=== PATIENT | female | born 1955 | race Caucasian/White ===

== ENCOUNTER 2020-07-07 08:39 | Outpatient (CLI) | payer MEDICARE, SELFPAY ==
[2020-07-07 09:21] LABS: Alanine Aminotransferase 13 U/L (4-35); Albumin Level 4.4 g/dL (3.5-5.1); Alkaline Phosphatase 60 U/L (38-126); Anion Gap 6 mmol/L (8-16); Aspartate Amino Transferase 24 U/L (14-36); Bilirubin,Total 0.7 mg/dL (0.2-1.3); Blood Urea Nitrogen 15 mg/dL (7-17); Calcium 9.6 mg/dL (8.4-10.2); Carbon Dioxide 30 mmol/L (22-30); Chloride 105 mmol/L (98-107); Estimated Glomerular Filt Rate 45; Glucose 104 mg/dL (65-105); HDL Direct 50 mg/dL; Potassium 3.8 mmol/L (3.4-5.0); Sodium 141 mmol/L (137-145); Triglycerides 200 mg/dL (<150)
[2020-07-07 09:28] LABS: LDL Cholesterol Direct 243 mg/dL
[2020-07-07 11:12] LABS: Cholesterol 355 mg/dL (0-200)
== END 2020-07-07 08:40 | disposition home or self-care (01) ==
PROVIDERS: PCP Internal Medicine; Visit Provider Internal Medicine
DX: E78.5 Hyperlipidemia, unspecified (principal); E03.9 Hypothyroidism, unspecified
CPT/HCPCS: 36415; 80053; 80061; 84439; 84443

== ENCOUNTER 2020-09-10 16:11 | Outpatient (CLI) | payer MEDICARE, SELFPAY ==
--- NOTE | ~2020-09-10 | CT_ITS ---
EXAMINATION: CT abdomen pelvis wo con EXAM DATE: 09/10/2020 16:36 INDICATION: R10.9 - Unspecified abdominal pain . TECHNIQUE: Spiral CT of the abdomen and pelvis was performed without contrast. Axial, coronal and s agittal images were reviewed. The dose-length product (DLP) for this examination was 309.55 mGy-cm. The exposure was tailored according to patient size (auto mA exposure control), and iterative recons truction (ASIR) was used as additional dose reduction technique. Comparison is made to prior examinat ion from 09/29/2006. FINDINGS: The liver, spleen, adrenal glands and pancreas are unremarkable. There are cholecystectomy clips. There is no nephrolithiasis or hydronephrosis. The uterus is not identified and has likely been surgically resected. The bladder is unremarkable. There is no retroperitoneal or pelvic lymph adenopathy. There is mild to moderate scattered arteriosclerotic disease. The appendix is normal. The stomach and small bowel are unremarkable. There is expected amount of c olonic stool. No free intraperitoneal gas. The heart is normal in size. There are no pericardial or pleural effusions. There is right basilar subsegmental atelectasis. Evidence of hyperinflation a nd mild emphysema. Mild basilar bronchiectasis. There are no osteoblastic or osteolytic lesions iden tified. Mild lumbar levoscoliosis. IMPRESSION: 1. No acute intra-abdominal findings. 2. Emphysema, hyperinflation, bronchiectasis. Reviewed, dictated and finalized at location A.
== END 2020-09-10 16:12 | disposition home or self-care (01) ==
LOC: ANHIMG 16:17
PROVIDERS: PCP Internal Medicine; Visit Provider Physician Assistant
DX: R10.9 Unspecified abdominal pain (principal); J43.9 Emphysema, unspecified; J47.9 Bronchiectasis, uncomplicated
CPT/HCPCS: 74176

== ENCOUNTER 2020-10-29 08:27 | Outpatient (CLI) | payer MEDICARE, SELFPAY ==
--- NOTE | 2020-10-29 08:54 | ECHO_ITS ---
Patient Info Name: Stephanie Guzman Age: 65 years : 1955 Gender: Female Ht: 68 in Wt: 138 lbs BSA: 1.73 m2 HR: 93 bpm BP: 142 / 91 mmHg Heart Rhythm: Sinus Rhythm Exam Date: 10/29/2020 9:08 AM Exam Location: [facility] Pulmonary Patient Status: Outpatient Admit Date: 10/29/2020 Staff Ordering Physician: Jamin Butler DO Cement Mixer Driver: MARCO Attending Provider: Jamin Butler DO Exam Type: CA echo doppler color flow Study Info Indications R55 - Syncope and collapse Complete two-dimensional, color flow and Doppler transthoracic echocardiogram is performed. Summary 1. Complete two-dimensional, color flow and Doppler transthoracic echocardiogram is performed. 2. Left ventricular chamber dimension is normal. 3. Left ventricular systolic function is normal, estimated at 55-60%. 4. The left ventricular diastolic function is grade I diastolic dysfunction. 5. The mitral valve has moderately calcified annulus. 6. There is trace mitral valve regurgitation. 7. There is trace tricuspid valve regurgitation. 8. No pulmonary hypertension, estimated pulmonary arterial systolic pressure is 14 mmHg. Left Ventricle Tissue doppler E/e' is not calculated. Left ventricular chamber dimension is normal. Left ventricular systolic function is normal, estimated at 55-60%. The left ventricular diastolic function is grade I diastolic dysfunction. Right Ventricle Right ventricular chamber dimension is normal. Right ventricular systolic function is normal. Left Atria Left atrial chamber dimension is normal. Right Atria Right atrial chamber dimension is normal. Aortic Valve The aortic valve is trileaflet. There is no aortic valve stenosis. There is no aortic valve regurgitation. Pulmonic Valve There is no pulmonic regurgitation. Mitral Valve The mitral valve has moderately calcified annulus. There is no mitral valve stenosis. There is trace mitral valve regurgitation. Tricuspid Valve There is trace tricuspid valve regurgitation. No pulmonary hypertension, estimated pulmonary arterial systolic pressure is 14 mmHg. Pericardium/Pleural There is no pericardial effusion. Inferior Vena Cava Normal inferior vena cava with >50% collapse upon inspiration consistent with normal right atrial pressure, 5 mmHg. Aorta The aortic root size at the sinus of Valsalva is normal. Left Ventricular Outflow Tract Name Value Normal LVOT 2D LVOT Diameter 2.0 cm LVOT Doppler LVOT Peak Gradient 3 mmHg LVOT Mean Gradient 1 mmHg LVOT VTI 18 cm LVOT VTI/AV VTI Ratio 0.8 LVOT Stroke Volume 53 ml LVOT CO 416.1 l/min LVOT CI 240.5 l/min/m2 Pulmonic Valve Name Value Normal PV Doppler
== END 2020-10-29 08:28 | disposition home or self-care (01) ==
LOC: ANHCARD 08:29
PROVIDERS: PCP Internal Medicine; Visit Provider Internal Medicine Cardiovascular Disease
DX: R55 Syncope and collapse (principal)
CPT/HCPCS: 93306

== ENCOUNTER 2020-12-23 11:03 | Outpatient (CLI) | payer MEDICARE, SELFPAY ==
[2020-12-23 11:34] LABS: Basophils Percent Auto 0.4 % (0.2-1.2); Eosinophils Absolute Auto 0.1 K/mm3 (0-0.3); Eosinophils Percent Auto 1.6 % (0-4.4); Hematocrit 41.6 % (37.0-47.0); Hemoglobin 13.6 g/dL (12.0-15.0); Immature Granulocyte Absolute 0.01 K/mm3 (0.00-0.031); Immature Granulocyte Percent A 0.2 % (0-0.5); Lymphocytes Absolute Auto 2.29 K/mm3 (0.9-3.2); Lymphocytes Percent Auto 45.2 % (18.3-44.2); Mean Corpuscular HGB Conc 32.7 g/dl (32-36); Mean Corpuscular Hemoglobin 28.9 pg (26-34); Mean Corpuscular Volume 88.5 fl (80-100); Monocytes Absolute Auto 0.5 K/mm3 (0.1-0.6); Monocytes Percent Auto 10.3 % (2.6-8.5); Neutrophils Absolute Auto 2.2 K/mm3 (1.3-6.7); Neutrophils Percent Auto 42.3 % (45.5-73.1); Platelet Count Result 219 k/mm3 (150-375); Red Cell Distribution Width 12.5 % (11.5-14.5); White Blood Count 5.1 K/mm3 (4.5-10.0)
[2020-12-23 11:39] LABS: Add Urine Microscopic? YES; Appearance Urine Clear (Clear); Bacteria Urine Trace /hpf; Bilirubin Urine Negative (Negative); Blood Urine Negative (Negative); Color Urine Yellow (Yellow); Glucose Urine UA Negative (Negative); Ketones Urine Negative (Negative); Leukocyte Esterase Ur 2+ LEU/UL (NEGATIVE); Mucus Urine Rare /lpf; Nitrate Urine Negative (Negative); Protein Urine Negative (Negative); Specific Grav Ur 1.015 (1.001-1.035); Squamous Epithelial Cell Urine Rare /hpf (Few); Urobilinogen Urine Negative mg/dL (<2.0); WBC Urine 21-30 /hpf (0-3)
[2020-12-23 11:43] LABS: Alanine Aminotransferase 21 U/L (4-35); Albumin Level 4.4 g/dL (3.5-5.1); Alkaline Phosphatase 61 U/L (38-126); Anion Gap 7 mmol/L (8-16); Aspartate Amino Transferase 37 U/L (14-36); Bilirubin,Total 0.4 mg/dL (0.2-1.3); Blood Urea Nitrogen 16 mg/dL (7-17); Calcium 9.5 mg/dL (8.4-10.2); Carbon Dioxide 31 mmol/L (22-30); Chloride 99 mmol/L (98-107); Cholesterol 185 mg/dL (0-200); Estimated Glomerular Filt Rate 50; Glucose 91 mg/dL (65-105); HDL Direct 56 mg/dL; Potassium 4.1 mmol/L (3.4-5.0); Sodium 137 mmol/L (137-145); Triglycerides 163 mg/dL (<150)
[2020-12-23 11:54] LABS: LDL Cholesterol Direct 78 mg/dL
[2020-12-23 12:24] LABS: Free T4 Free Thyroxine 1.23 ng/mL (0.78-2.19)
[2020-12-23 12:51] LABS: Folic Acid > 20.0 ng/mL (2.76->20)
== END 2020-12-23 11:04 | disposition home or self-care (01) ==
LOC: ANHLAB 11:07
PROVIDERS: Physician Assistant; PCP Internal Medicine; Visit Provider Internal Medicine
DX: R30.0 Dysuria (principal); E55.9 Vitamin D deficiency, unspecified; R53.83 Other fatigue; E03.9 Hypothyroidism, unspecified; I10 Essential (primary) hypertension; E78.5 Hyperlipidemia, unspecified
CPT/HCPCS: 36415; 80053; 80061; 81001; 82306; 82607; 82746; 83735; 84439; 84443; 85025; 87077; 87086; 87088; 87186

== ENCOUNTER → 2021-04-03 10:18 | Outpatient (CLI) | payer MEDICARE, SELFPAY ==
--- NOTE | ~2021-04-03 | DEXA_ITS ---
Bone Density Report Name: Stephanie Guzman Age: 65 Sex: Female Ethnicity: White Date of : 1955 Indication: postmenopausal; screening for osteoporosis; height loss; history of glucocorticoids; prior fracture; hysterectomy; rheumatoid arthritis; Referring Provider: Alessandro, Aleksandar Villalobos Study: Bone densitometry was performed. Exam Date: April 03, 2021 Accession number: [id number] Bone Density: Region BMD T-score Z-score Classification AP Spine (L1-L4) 0.964 -0.8 1.0 Normal Femoral Neck (Left) 0.535 -2.8 -1.4 Osteoporosis Total Hip (Left) 0.702 -2.0 -0.8 Osteopenia Femoral Neck (Right) 0.548 -2.7 -1.2 Osteoporosis Total Hip (Right) 0.745 -1.6 -0.4 Osteopenia Total Hip Mean 0.724 -1.8 -0.6 Osteopenia World Health Organization criteria for BMD impression classify patients as: Normal (T-score at or above -1.0), Osteopenia (T-score between -1.0 and -2.5), or Osteoporosis (T-score at or below -2.5). 10-year Fracture Risk: FRAX not reported because: Some T-score for Spine Total or Hip Total or Femoral Neck at or below -2.5 Prior hip or vertebral fracture Previous Exams: Region Exam Age BMD T-score BMD Change BMD Change Date g/cm2 vs Baseline vs Previous AP Spine(L1-L4) 04/03/2021 65 0.964 -0.8 -0.039* -0.039* 08/15/2007 51 1.003 -0.4 Total Hip(Left) 04/03/2021 65 0.702 -2.0 -0.174* -0.174* 08/15/2007 51 0.876 -0.5 Total Hip(Right) 04/03/2021 65 0.745 -1.6 -0.162* -0.162* 08/15/2007 51 0.907 -0.3 *Denotes significance at 95% confidence level, LSC for AP Spine = 0.022 g/cm2, LSC for Total Hip = 0.027 g/cm2 Clinical Information Provided by Patient: Have had a previous hip or vertebral fracture Has had a low trauma fracture Has taken Glucocorticoids Has rheumatoid arthritis Has used the following medications: Vitamin D, 5 mg prednisone daily recently for 6 weeks Has the following medical conditions: Hysterectomy, beginning stages emphysema-no treatment yet, stage 1 kidney disease Patient maximum height was 67 Menopause Age: 35 No regular weight bearing exercise Does not regularly consume dairy products Onset of menses at age 13 Number of children 2 Impression: The patient has established osteoporosis, based on the Left Femoral Neck T-score and the existence of a prior fracture. The patient has risk factors, including: previous fracture, history of glucocorticoid therapy. The BMD for the AP
== END ==
PROVIDERS: PCP Internal Medicine; Visit Provider Internal Medicine
DX: M43.9 Deforming dorsopathy, unspecified (principal); M81.0 Age-related osteoporosis without current pathological fracture; Z78.0 Asymptomatic menopausal state; M85.852 Other specified disorders of bone density and structure, left thigh; M85.851 Other specified disorders of bone density and structure, right thigh
CPT/HCPCS: 77080

== ENCOUNTER → 2021-04-03 10:22 | Outpatient (CLI) | payer MEDICARE, SELFPAY ==
--- NOTE | ~2021-04-03 | MM_ITS ---
EXAMINATION: MM screening constance BI w paul HISTORY: Screening mammogram TECHNIQUE: Craniocaudal and mediolateral oblique 3-D tomosynthesis images were obtained and synthetic 2-D images were generated. Bilateral rotated lateral cc views. CAD analysis was submitted and interp reted. COMPARISON: 11/06/2013 diagnostic right mammogram and right breast ultrasound 11/04/2013 bilateral digital screening mammogram 10/19/2012 diagnostic left digital mammogram and limited left breast ultrasound 10/08/2012 bilateral digital screening mammogram 09/24/2010 bilateral digital screening mammogram BREAST PARENCHYMAL COMPOSITION: The breasts are heterogeneously dense, which may obscure small masses . FINDINGS: Occasional benign calcifications. There is no evidence of suspicious mass, calcification, o r architectural distortion to suggest malignancy in either breast. There has been no suspicious inter micha change. IMPRESSION: 1. No mammographic evidence of malignancy. 2. Recommend routine screening mammography in one year. BI-RADS Category 2: Benign finding(s). Reviewed, dictated and finalized at location A.
== END ==
PROVIDERS: PCP Internal Medicine; Visit Provider Internal Medicine
DX: Z12.31 Encounter for screening mammogram for malignant neoplasm of breast (principal)
CPT/HCPCS: 77063; 77067

== ENCOUNTER → 2021-04-21 08:58 | Outpatient (CLI) | payer MEDICARE, SELFPAY ==
[2021-04-21 17:30] LABS: SARS-CoV-2 RNA PCR Negative
== END ==
PROVIDERS: PCP Internal Medicine; Visit Provider Internal Medicine
DX: B34.9 Viral infection, unspecified (principal); Z20.822 Contact with and (suspected) exposure to COVID-19
CPT/HCPCS: C9803; U0003; U0005

== ENCOUNTER → 2021-07-14 01:56 | Outpatient (CLI) | payer MEDICARE, SELFPAY ==
[2021-07-14 12:49] LABS: Influenza A QL RT-PCR Negative (Negative); Influenza B QL RT-PCR Negative (Negative); SARS-CoV-2 RNA PCR Positive
== END ==
PROVIDERS: PCP Internal Medicine; Visit Provider Internal Medicine
DX: U07.1 COVID-19 (principal)
CPT/HCPCS: 87502; C9803; U0003; U0005

== ENCOUNTER 2021-11-17 07:04 | Outpatient (CLI) | payer MEDICARE, SELFPAY ==
[2021-11-17 07:38] LABS: Basophils Percent Auto 0.4 % (0.2-1.2); Eosinophils Absolute Auto 0.1 K/mm3 (0-0.3); Eosinophils Percent Auto 1.1 % (0-4.4); Hematocrit 41.8 % (37.0-47.0); Hemoglobin 13.9 g/dL (12.0-15.0); Lymphocytes Absolute Auto 2.62 K/mm3 (0.9-3.2); Lymphocytes Percent Auto 49.4 % (18.3-44.2); Mean Corpuscular HGB Conc 33.3 g/dl (32-36); Mean Corpuscular Hemoglobin 29.9 pg (26-34); Mean Corpuscular Volume 89.9 fl (80-100); Mean Platelet Volume 9.2 fl (7.4-10.4); Monocytes Absolute Auto 0.6 K/mm3 (0.1-0.6); Monocytes Percent Auto 12.1 % (2.6-8.5); Platelet Count Result 186 k/mm3 (150-375); Red Blood Count 4.65 M/mm3 (4.2-5.4); Red Cell Distribution Width 11.9 % (11.5-14.5); White Blood Count 5.3 K/mm3 (4.5-10.0)
[2021-11-17 08:56] LABS: Alanine Aminotransferase 18 U/L (6-35); Albumin Level 4.7 g/dL (3.5-5.1); Alkaline Phosphatase 51 U/L (38-126); Anion Gap 4 mmol/L (8-16); Aspartate Amino Transferase 31 U/L (14-36); Bilirubin,Total 0.4 mg/dL (0.2-1.3); Blood Urea Nitrogen 13 mg/dL (7-17); Calcium 9.3 mg/dL (8.4-10.2); Carbon Dioxide 28 mmol/L (22-30); Chloride 108 mmol/L (98-107); Cholesterol 177 mg/dL (0-200); Estimated Glomerular Filt Rate 50; Glucose 89 mg/dL (65-110); HDL Direct 59 mg/dL; Potassium 3.8 mmol/L (3.4-5.0); Sodium 140 mmol/L (137-145); Triglycerides 119 mg/dL (<150)
[2021-11-17 09:05] LABS: Free T4 Free Thyroxine 1.57 ng/mL (0.78-2.19); Vitamin D 25 Hydroxy 68.1 ng/mL
[2021-11-17 09:06] LABS: LDL Cholesterol Direct 75 mg/dL
[2021-11-17 11:18] LABS: Folic Acid > 20.0 ng/mL (2.76->20)
== END 2021-11-17 07:05 | disposition home or self-care (01) ==
PROVIDERS: PCP Internal Medicine; Visit Provider Internal Medicine
DX: E55.9 Vitamin D deficiency, unspecified (principal); E03.9 Hypothyroidism, unspecified; E78.5 Hyperlipidemia, unspecified; R53.83 Other fatigue
CPT/HCPCS: 36415; 80053; 80061; 82306; 82607; 82746; 84439; 84443; 85025

== ENCOUNTER 2022-04-29 00:26 | Day surgery (SDC) | payer MEDICARE, SELFPAY ==
[2022-04-20 14:27] VITALS: BMI 24.2
--- NOTE | 2022-04-27 15:11 | PM.HPGS ---
History of Present Illness History of Present Illness Consent: Risks, benefits, and alternatives have been discussed and questions answered. Patient agrees to proceed with procedure. Chief complaint: constipation, hx colon polyps Narrative: Stephanie Guzman is a 66 year old female referred for colon cancer screening. She had 3 adenomatous polyps removed about 8 years ago. [facility] Past Medical History Medical History Anxiety Arthritis Asthma COPD (chronic obstructive pulmonary disease) HTN (hypertension) Surgical History Surgical History History of back surgery History of cholecystectomy History of hysterectomy Family History Family History Mother Family history of pancreatic cancer Father Patient's father is in good health Social History Social History Smoking status: Former smoker Second hand tobacco smoke exposure: No Alcohol intake: never Substance use: never Substance use type: does not use Living arrangements: with family Spiritual care concerns: No Meds Home Medications and Allergies Home Medications Medication Instructions Recorded Confirmed Type multivitamin (Multiple Vitamins 1 tablet PO DAILY 10/28/19 04/20/22 History tablet) omega-3 fatty acids 1,000 mg 1,000 mg PO DAILY 04/08/20 04/20/22 History capsule hydroxychloroquine 200 mg tablet 200 mg PO BID 12/23/20 04/20/22 History tramadol 50 mg tablet 100 mg PO TID PRN pain #30 tabs 01/11/21 04/20/22 Rx bupropion HCl 75 mg tablet 150 mg PO DAILY 06/02/21 04/20/22 History cholecalciferol (vitamin D3) 125 10,000 unit PO DAILY 06/02/21 04/20/22 History mcg (5,000 unit) capsule ondansetron HCl 4 mg tablet 4 mg PO Q8H 06/02/21 04/20/22 History (Zofran) tizanidine 4 mg capsule 4 mg PO QHS PRN Muscle Spasm 06/02/21 04/20/22 History losartan 50 mg tablet 50 mg PO DAILY #90 tabs 11/21/21 04/20/22 Rx rosuvastatin 10 mg tablet (Crestor) 10 mg PO DAILY #90 tabs 12/13/21 04/20/22 Rx levothyroxine 25 mcg tablet 25 mcg PO DAILY #90 tabs 01/24/22 04/20/22 Rx comp.stocking,knee,long,medium #12 ea 04/01/22 04/01/22 Rx secukinumab 150 mg/mL subcutaneous 150 mg subcut .2 weeks 04/01/22 04/20/22 History syringe (Cosentyx) pantoprazole 40 mg tablet,delayed See Rx Instructions .Route 04/07/22 04/20/22 Rx release .COMPLEX #90 tabs buspirone 15 mg tablet 15 mg PO BID 04/20/22 04/20/22 History meclizine 25 mg tablet 25 mg PO BID PRN Dizziness 04/20/22 04/20/22 History Allergies Allergy/AdvReac Type Severity Reaction Status Date / Time oxycodone Allergy Intermediate ITCHY RASH Verified 04/01/22 14:11 amitriptyline Allergy Unknown HEADACHE Verified 04/01/22 14:11 AND RASH Barbiturates Allergy Unknown RASH AND Verified 04/01/22 14:11 ITCHING butalbital Allergy Unknown RASH AND Verified 04/01/22 14:11 ITCHING codeine Allergy Unknown RASH AND Verified 04/01/22 14:11 ITCHING; ABLE TO TAKE VICODIN divalproex sodium Allergy Unknown GROSS Verified 04/01/22 14:11 TREMORS nitrofurantoin Allergy Unknown RASH AND Verified 04/01/22 14:11 ITCHING Penicillins Allergy Unknown HIVES AND Verified 04/01/22 14:11 THROAT SWELLING propoxyphene Allergy Unknown RASH AND Verified 04/01/22 14:11 ITCHING Sulfa (Sulfonamide Allergy Unknown HIVES AND Verified 04/01/22 14:11 Antibiotics) ITCHING morphine AdvReac Severe Vomiting Verified 04/01/22 14:11 ADHESIVE TAPE Allergy Mild BLISTERS Uncoded 04/01/22 14:11 XANTHINE Allergy Unknown HIVES AND Uncoded 04/01/22 14:11 ITCHING Contrast Media AdvReac Intermediate NAUSEA, Uncoded 04/01/22 14:11 HOT, LIGHTHEADED Assessment and Plan Assessment and plan (1) Colon cancer screening: Code(s)
[2022-04-29] VITALS (7 sets, daily range): BP systolic 139–177; BP diastolic 87–101; PULSE 87–112; RESP 16; TEMP 36.2; O2SAT 97–100
--- NOTE | 2022-04-29 10:34 | WPDANESEPPF ---
Anes - Initial Pre Proc Eval Procedure: Operation Date: 04/29/22 11:30 Proposed Procedures p Colonoscopy - Vinicius Small MD Date/Time: 04/29/22 10:34 Surgeon: Vinicius Small MD Pre Op Diagnosis: constipation, hx colon polyps Patient Data Age: 66 Gender: F Height: 1.65 m Weight: 66 kg Allergies Allergy/AdvReac Type Severity Reaction Status Date / Time oxycodone Allergy Intermediate ITCHY RASH Verified 04/01/22 14:11 amitriptyline Allergy Unknown HEADACHE Verified 04/01/22 14:11 AND RASH Barbiturates Allergy Unknown RASH AND Verified 04/01/22 14:11 ITCHING butalbital Allergy Unknown RASH AND Verified 04/01/22 14:11 ITCHING codeine Allergy Unknown RASH AND Verified 04/01/22 14:11 ITCHING; ABLE TO TAKE VICODIN divalproex sodium Allergy Unknown GROSS Verified 04/01/22 14:11 TREMORS nitrofurantoin Allergy Unknown RASH AND Verified 04/01/22 14:11 ITCHING Penicillins Allergy Unknown HIVES AND Verified 04/01/22 14:11 THROAT SWELLING propoxyphene Allergy Unknown RASH AND Verified 04/01/22 14:11 ITCHING Sulfa (Sulfonamide Allergy Unknown HIVES AND Verified 04/01/22 14:11 Antibiotics) ITCHING morphine AdvReac Severe Vomiting Verified 04/01/22 14:11 ADHESIVE TAPE Allergy Mild BLISTERS Uncoded 04/01/22 14:11 XANTHINE Allergy Unknown HIVES AND Uncoded 04/01/22 14:11 ITCHING Contrast Media AdvReac Intermediate NAUSEA, Uncoded 04/01/22 14:11 HOT, LIGHTHEADED Home Medications Medication Instructions Recorded Confirmed Type multivitamin (Multiple Vitamins 1 tablet PO DAILY 10/28/19 04/20/22 History tablet) omega-3 fatty acids 1,000 mg 1,000 mg PO DAILY 04/08/20 04/20/22 History capsule hydroxychloroquine 200 mg tablet 200 mg PO BID 12/23/20 04/20/22 History tramadol 50 mg tablet 100 mg PO TID PRN pain #30 tabs 01/11/21 04/20/22 Rx bupropion HCl 75 mg tablet 150 mg PO DAILY 06/02/21 04/20/22 History cholecalciferol (vitamin D3) 125 10,000 unit PO DAILY 06/02/21 04/20/22 History mcg (5,000 unit) capsule ondansetron HCl 4 mg tablet 4 mg PO Q8H 06/02/21 04/20/22 History (Zofran) tizanidine 4 mg capsule 4 mg PO QHS PRN Muscle Spasm 06/02/21 04/20/22 History losartan 50 mg tablet 50 mg PO DAILY #90 tabs 11/21/21 04/20/22 Rx rosuvastatin 10 mg tablet (Crestor) 10 mg PO DAILY #90 tabs 12/13/21 04/20/22 Rx levothyroxine 25 mcg tablet 25 mcg PO DAILY #90 tabs 01/24/22 04/20/22 Rx comp.stocking,knee,long,medium #12 ea 04/01/22 04/01/22 Rx secukinumab 150 mg/mL subcutaneous 150 mg subcut .2 weeks 04/01/22 04/20/22 History syringe (Cosentyx) pantoprazole 40 mg tablet,delayed See Rx Instructions .Route 04/07/22 04/20/22 Rx release .COMPLEX #90 tabs buspirone 15 mg tablet 15 mg PO BID 04/20/22 04/20/22 History meclizine 25 mg tablet 25 mg PO BID PRN Dizziness 04/20/22 04/20/22 History Patient hx anesthesia problems: none Family hx anesthesia problems: none Results Review: All pre-operative results and documents have been reviewed as part of the pre-operative evaluation. [facility] Past Medical History Medical History (Updated 04/29/22 @ 10:35 by Clarence Wang MD) Anxiety Arthritis Asthma COPD (chronic obstructive pulmonary disease) HTN (hypertension) Surgical History Surgical History History of back surgery History of cholecystectomy History of hysterectomy Family History Family History Mother Family history of pancreatic cancer Father Patient's father is in good health Social History Social History Smoking status: Former smoker Second hand tobacco smoke exposure: No Alcohol intake: never Substance use: never Substance use type: does not use Living arrangements: with family Spiritual care concerns: No
[2022-04-29] MEDS: LACTATED RINGERS 1,000 ML 150 ML IV CONT (10:49)
--- NOTE | 2022-04-29 11:40 | SUR.PHASEII ---
1128 pt c/o abdominal pain. Advised to try to pass air. 1135 pt c/o abdominal pain, crying. Dr. Small at bedside.
[2022-04-29] MEDS: fentaNYL CITRATE INJ (*CRX) 100 MCG/2 ML VIAL 25 MCG IV PUSH (11:52)
--- NOTE | 2022-04-29 12:21 | SUR.PHASEII ---
1220 pt states feels better, pain is at a 6 out of 10. Pain was 7 pre-op.
== END 2022-04-29 12:30 | disposition home or self-care (01) ==
PROVIDERS: PCP Internal Medicine; Visit Provider Internal Medicine Gastroenterology
PROC: 0DJD8ZZ Inspection of Lower Intestinal Tract, Via Natural or Artificial Opening Endoscopic (ICD-10-PCS; CPT 45378; principal; 2022-04-29 11:30)
DX: Z12.11 Encounter for screening for malignant neoplasm of colon (principal); K64.8 Other hemorrhoids; K57.30 Diverticulosis of large intestine without perforation or abscess without bleeding; D12.0 Benign neoplasm of cecum; J44.9 Chronic obstructive pulmonary disease, unspecified; I10 Essential (primary) hypertension; F41.9 Anxiety disorder, unspecified
CPT/HCPCS: 45385; 88305; J2704; J3010; J7120

== ENCOUNTER 2022-07-05 16:09 | Outpatient (CLI) | payer MEDICARE, SELFPAY ==
[2022-07-05 17:04] LABS: Appearance Urine Clear (Clear); Bilirubin Urine Negative (Negative); Blood Urine Trace-intact (Negative); Color Urine Yellow (Yellow); Glucose Urine UA Negative (Negative); Ketones Urine Negative (Negative); Leukocyte Esterase Ur 2+ LEU/UL (Negative); Nitrate Urine Negative (Negative); Protein Urine Negative (Negative); Urobilinogen Urine 0.2 mg/dL (<2.0)
[2022-07-05 17:12] LABS: Bacteria Urine Trace /hpf; Mucus Urine Rare /lpf; RBC Urine 0-2 /hpf (0-2); Squamous Epithelial Cell Urine Rare /hpf (Few); WBC Urine >75 /hpf
[2022-07-05 17:13] LABS: Add Urine Microscopic? YES
== END 2022-07-05 16:10 | disposition home or self-care (01) ==
PROVIDERS: PCP Internal Medicine; Visit Provider Internal Medicine
DX: R30.0 Dysuria (principal)
CPT/HCPCS: 81001; 87086; 87088

== ENCOUNTER 2022-07-12 11:06 | Outpatient (CLI) | payer MEDICARE, SELFPAY ==
[2022-07-12 12:52] LABS: Influenza A QL RT-PCR Negative (Negative); Influenza B QL RT-PCR Negative (Negative); RSV RNA, RT-PCR Negative (Negative); SARS-CoV-2 RNA PCR Negative
== END 2022-07-12 11:07 | disposition home or self-care (01) ==
LOC: ANHLAB 11:09
PROVIDERS: PCP Internal Medicine; Visit Provider Internal Medicine
DX: R50.9 Fever, unspecified (principal); Z20.822 Contact with and (suspected) exposure to COVID-19
CPT/HCPCS: 87637

== ENCOUNTER 2022-08-11 14:53 | Outpatient (CLI) | payer MEDICARE, SELFPAY ==
--- NOTE | ~2022-08-11 | XR_ITS ---
EXAMINATION: XR lumbar spine 2-3V DATE: 08/11/2022 15:16 INDICATION: Dorsalgia, unspecified. TECHNIQUE: 3 views of lumbar spine were obtained. COMPARISON: Lumbar spine radiographs 01/14/2015, CT abdomen and pelvis 09/10/2020 FINDINGS: There is 8 degrees levocurvature of lumbar spine. Vertebral body heights are normal. There is mildly decreased disc height at L1-L2 and L2-L3, moderately decreased disc at L3-L4, and severely decreased disc height at L4-L5. There is multilevel facet joint osteoarthritis, severe in lower lumba r spine. IMPRESSION: 1. Severe lumbar spondylosis. Reviewed, dictated and finalized at location A. [employer]
--- NOTE | ~2022-08-11 | CT_ITS ---
EXAMINATION: CT brain wo con DATE: 08/11/2022 15:17 INDICATION: Headache and dizziness. Abnormal gait. TECHNIQUE: Computed tomography (CT) of the head was performed without intravenous contrast. The mA wa s adjusted according to patient size. Iterative reconstruction technique was employed. The dose-lengt h product was 605.33 mGy-cm. COMPARISON: Head CT 01/06/2011 FINDINGS: There is no intracranial hemorrhage, acute infarction, or abnormal intracranial mass lesion . There are scattered areas of low attenuation in the cerebral white matter. The ventricles are divya l in size. The orbits are normal. There is mild mucosal thickening in the paranasal sinuses. The mast oid air cells are normal. IMPRESSION: 1. Moderate nonspecific cerebral white matter disease, which likely represents chronic small vessel i schemic disease. Reviewed, dictated and finalized at location A. [employer] IMPRESSION: 1. Moderate nonspecific cerebral white matter disease, which likely represents chronic small vessel ischemic disease.
== END 2022-08-11 14:54 | disposition home or self-care (01) ==
LOC: ANHIMG 14:54
PROVIDERS: PCP Internal Medicine; Visit Provider Internal Medicine
DX: R26.89 Other abnormalities of gait and mobility (principal); R26.9 Unspecified abnormalities of gait and mobility; M47.896 Other spondylosis, lumbar region; R93.0 Abnormal findings on diagnostic imaging of skull and head, not elsewhere classified
CPT/HCPCS: 70450; 72100

== ENCOUNTER 2022-08-31 12:24 | Outpatient (RCR) | payer MEDICARE, SELFPAY ==
--- NOTE | 2022-09-01 08:52 | PTOPEVAL1 ---
Assessment and note entered by Rhett Walsh, PT Evaluation Information Assessment Status Evaluation Diagnosis other dorsalgia Subjective Information Patient reports she has had chronic back pain and has a diagnosis of ankylosing spondylitis. She has had previous what she describes as vertebroplasty surgeries to her back as she reports just cement no hardware. She uses a cane to help with mobility and reduce weight put on the L side, having radiating symptoms down the LLE. Main pain causing symptoms are prolonged position, walking, sitting, trouble getting comfortable for sleep and staying asleep. Unable to take narcotics and reports tramadol gives minimal relief. Assessment PT Clinical Summary Stephanie is a 66 year old female coming into the clinic for back pain, she appears to have severe issues that may need more aggressive treatment than physical therapy, but we will try to work on pain control and posture with gentle stretching to get spine back in proper alignment. Plan of Care Interventions Electrical Stimulation,Gait Training,Hot Pack/Cold Pack,Manual Therapy,Neuro Re-education,Patient/ Caregiver Education,Therapeutic Activities, Therapeutic Exercise,Ultrasound Other Interventions taping PT Services Indicated Yes Treatment Frequency and 1x/wk for 4 weeks Duration These treatments will address the objective and functional deficits as defined above. The patient will be advanced safely and appropriately in order for the patient to progress towards his/her prior level of function. Additional exercises will be introduced and as well as a comprehensive home exercise program upon discharge, if needed, ?to ensure carryover of functional gains achieved in the clinic. This treatment plan has been reviewed and agreement upon by the patient.
--- NOTE | 2022-09-20 09:43 | PTOPDC ---
Assessment and note entered by Rhett Walsh, PT Evaluation Information Assessment Status Discharge - Pt Not Presen Diagnosis other dorsalgia Subjective Information Patient reports she has had chronic back pain and has a diagnosis of ankylosing spondylitis. She has had previous what she describes as vertebroplasty surgeries to her back as she reports just cement no hardware. She uses a cane to help with mobility and reduce weight put on the L side, having radiating symptoms down the LLE. Main pain causing symptoms are prolonged position, walking, sitting, trouble getting comfortable for sleep and staying asleep. Unable to take narcotics and reports tramadol gives minimal relief. Assessment PT Clinical Summary Physical therapist received a message that the patient is cancelling all future appointments and stopping treatments secondary to being unable to afford copay. Discharged from skilled physical therapy. Plan of Care PT Services Indicated Yes
== END 2022-09-20 15:06 | disposition home or self-care (01) ==
LOC: ANHPT 12:24
PROVIDERS: PCP Internal Medicine; Visit Provider Internal Medicine
DX: M54.89 Other dorsalgia (principal)
CPT/HCPCS: 97110; 97161

== ENCOUNTER 2022-10-19 09:33 | Outpatient (CLI) | payer MEDICARE, SELFPAY ==
[2022-10-19 10:22] LABS: Eosinophils Absolute Auto 0.1 K/mm3 (0-0.3); Eosinophils Percent Auto 1.6 % (0-4.4); Hematocrit 38.2 % (37.0-47.0); Hemoglobin 12.7 g/dL (12.0-15.0); Immature Granulocyte Absolute 0.01 K/mm3 (0.00-0.031); Immature Granulocyte Percent A 0.3 % (0-0.5); Lymphocytes Absolute Auto 1.36 K/mm3 (0.9-3.2); Mean Corpuscular HGB Conc 33.2 g/dl (32-36); Mean Corpuscular Hemoglobin 30.1 pg (26-34); Mean Corpuscular Volume 90.5 fl (80-100); Mean Platelet Volume 8.7 fl (7.4-10.4); Monocytes Absolute Auto 0.5 K/mm3 (0.1-0.6); Monocytes Percent Auto 15.5 % (2.6-8.5); Neutrophils Absolute Auto 1.2 K/mm3 (1.3-6.7); Neutrophils Percent Auto 37.6 % (45.5-73.1); Platelet Count Result 196 k/mm3 (150-375); Red Blood Count 4.22 M/mm3 (4.2-5.4); Red Cell Distribution Width 12.9 % (11.5-14.5); White Blood Count 3.1 K/mm3 (4.5-10.0)
[2022-10-19 10:31] LABS: Alanine Aminotransferase 18 U/L (6-35); Albumin Level 4.5 g/dL (3.5-5.1); Alkaline Phosphatase 48 U/L (38-126); Anion Gap 5 mmol/L (8-16); Aspartate Amino Transferase 25 U/L (14-36); Bilirubin,Total 0.8 mg/dL (0.2-1.3); Blood Urea Nitrogen 14 mg/dL (7-17); Calcium 8.9 mg/dL (8.4-10.2); Carbon Dioxide 29 mmol/L (22-30); Chloride 104 mmol/L (98-107); Estimated Glomerular Filt Rate 55; Glucose 79 mg/dL (65-110); HDL Direct 52 mg/dL; Potassium 3.9 mmol/L (3.4-5.0); Sodium 138 mmol/L (137-145); Triglycerides 120 mg/dL (<150)
[2022-10-19 10:44] LABS: LDL Cholesterol Direct 213 mg/dL
[2022-10-19 10:56] LABS: Thyroid Stimulating Hormone 0.901 uIU/mL (0.465-4.680)
[2022-10-19 11:22] LABS: Cholesterol 354 mg/dL (0-200)
[2022-10-19 11:32] LABS: Folic Acid 13.4 ng/mL (2.76->20)
[2022-10-19 11:40] LABS: Free T4 Free Thyroxine 1.32 ng/mL (0.78-2.19); Vitamin D 25 Hydroxy 64.8 ng/mL
== END 2022-10-19 09:34 | disposition home or self-care (01) ==
PROVIDERS: PCP Internal Medicine; Visit Provider Internal Medicine
DX: E78.5 Hyperlipidemia, unspecified (principal); I10 Essential (primary) hypertension; E03.9 Hypothyroidism, unspecified; E55.9 Vitamin D deficiency, unspecified; R53.83 Other fatigue
CPT/HCPCS: 36415; 80053; 80061; 82306; 82607; 82746; 84439; 84443; 85025

== ENCOUNTER → 2022-11-08 13:19 | Outpatient (CLI) | payer MEDICARE, SELFPAY ==
--- NOTE | ~2022-11-08 | MR_ITS ---
EXAMINATION: MR lumbar spine wo con DATE: 11/08/2022 14:03 INDICATION: Low back pain. Left leg weakness. TECHNIQUE: Magnetic resonance imaging (MRI) of the lumbar spine was performed without intravenous con trast. Sequences included sagittal T2-weighted FSE, sagittal T2-weighted FS FSE, sagittal T1-weighted FSE, and axial T2-weighted FSE. COMPARISON: Lumbar spine MRI 08/06/2012 FINDINGS: There is 11 degrees levoscoliosis of lumbar spine. Vertebral body heights are normal. There is moderately decreased disc height at L3-L4, severely decreased disc height at L4-L5, and mildly de creased disc height at L5-S1. The distal spinal cord signal intensity is normal. The conus medullaris is at L1. The following disc levels are specifically discussed: L1-L2: The disc does not extend beyond the endplate margin. There is mild bilateral facet joint osteo arthritis. There is no neural foraminal stenosis. There is no central canal stenosis. L2-L3: The disc is bulging. There is moderate right and mild left facet joint osteoarthritis. There i s mild right and moderate left neural foraminal stenosis. There is mild central canal stenosis. L3-L4: The disc is bulging and has an annular fissure. There is severe right and moderate left facet joint osteoarthritis. There is mild bilateral neural foraminal stenosis. There is mild central canal stenosis. L4-L5: The disc is bulging. There is severe bilateral facet joint osteoarthritis. There is mild right and moderate left neural foraminal stenosis. There is mild central canal stenosis. L5-S1: The disc is mildly bulging and has an annular fissure. There is moderate right and severe left facet joint osteoarthritis. There is mild bilateral neural foraminal stenosis. There is mild central canal stenosis. IMPRESSION: 1. Severe lumbar spondylosis, worsened from 08/06/2012. Reviewed, dictated and finalized at location A.
== END ==
PROVIDERS: PCP Internal Medicine; Visit Provider Internal Medicine
DX: R20.2 Paresthesia of skin (principal); M47.896 Other spondylosis, lumbar region
CPT/HCPCS: 72148

== ENCOUNTER 2023-03-24 08:28 | Outpatient (CLI) | payer MEDICARE, SELFPAY ==
[2023-03-24 09:34] LABS: Alanine Aminotransferase 15 U/L (6-35); Albumin Level 4.5 g/dL (3.5-5.1); Alkaline Phosphatase 50 U/L (38-126); Anion Gap 5 mmol/L (8-16); Aspartate Amino Transferase 27 U/L (14-36); Bilirubin,Total 0.6 mg/dL (0.2-1.3); Blood Urea Nitrogen 15 mg/dL (7-17); Calcium 9.1 mg/dL (8.4-10.2); Carbon Dioxide 29 mmol/L (22-30); Chloride 104 mmol/L (98-107); Cholesterol 293 mg/dL (0-200); Estimated Glomerular Filt Rate 55; Glucose 80 mg/dL (65-110); HDL Direct 56 mg/dL; Sodium 138 mmol/L (137-145); Triglycerides 143 mg/dL (<150)
[2023-03-24 09:35] LABS: Basophils Percent Auto 0.5 % (0.2-1.2); Eosinophils Percent Auto 1.1 % (0-4.4); Hematocrit 40.1 % (37.0-47.0); Immature Granulocyte Absolute 0.01 K/mm3 (0.00-0.031); Immature Granulocyte Percent A 0.3 % (0-0.5); Lymphocytes Absolute Auto 1.77 K/mm3 (0.9-3.2); Lymphocytes Percent Auto 46.7 % (18.3-44.2); Mean Corpuscular HGB Conc 32.4 g/dl (32-36); Mean Corpuscular Hemoglobin 30.7 pg (26-34); Mean Corpuscular Volume 94.8 fl (80-100); Monocytes Absolute Auto 0.6 K/mm3 (0.1-0.6); Neutrophils Absolute Auto 1.4 K/mm3 (1.3-6.7); Neutrophils Percent Auto 36.4 % (45.5-73.1); Platelet Count Result 224 k/mm3 (150-375); Red Blood Count 4.23 M/mm3 (4.2-5.4); Red Cell Distribution Width 11.7 % (11.5-14.5); White Blood Count 3.8 K/mm3 (4.5-10.0)
[2023-03-24 09:45] LABS: LDL Cholesterol Direct 158 mg/dL
[2023-03-24 10:09] LABS: Free T4 Free Thyroxine 1.14 ng/mL (0.78-2.19); Vitamin D 25 Hydroxy 83.8 ng/mL
== END 2023-03-24 08:29 | disposition home or self-care (01) ==
LOC: ANHLAB 08:31
PROVIDERS: PCP Internal Medicine; Visit Provider Internal Medicine
DX: E03.9 Hypothyroidism, unspecified (principal); E55.9 Vitamin D deficiency, unspecified; E78.5 Hyperlipidemia, unspecified; I10 Essential (primary) hypertension; R53.83 Other fatigue
CPT/HCPCS: 36415; 80053; 80061; 82306; 84439; 84443; 85025

== ENCOUNTER → 2023-04-13 12:30 | Outpatient (CLI) | payer MEDICARE, SELFPAY ==
--- NOTE | ~2023-04-13 | MM_ITS ---
EXAMINATION: MM screening constance BI w paul HISTORY: Screening mammogram TECHNIQUE: Craniocaudal and mediolateral oblique 3-D tomosynthesis images were obtained and synthetic 2-D images were generated. Bilateral rotated lateral CC views. CAD analysis was submitted and interp reted. COMPARISON: 04/03/2021 bilateral screening mammogram BREAST PARENCHYMAL COMPOSITION: The breasts are heterogeneously dense, which may obscure small masses . FINDINGS: Occasional benign calcifications. There is no evidence of suspicious mass, calcification, o r architectural distortion to suggest malignancy in either breast. There has been no suspicious inter micha change. IMPRESSION: 1. No mammographic evidence of malignancy. 2. Recommend routine screening mammography in one year. BI-RADS Category 2: Benign finding(s). Reviewed, dictated and finalized at location A.
== END ==
PROVIDERS: PCP Internal Medicine; Visit Provider Internal Medicine
DX: Z12.31 Encounter for screening mammogram for malignant neoplasm of breast (principal)
CPT/HCPCS: 77063; 77067

== ENCOUNTER 2023-09-04 18:39 | Emergency (ER) | payer MEDICARE, SELFPAY ==
--- NOTE | ~2023-09-04 | XR_ITS ---
EXAMINATION: XR chest 2V Exam Date/Time: 09/04/2023 19:00 CDT HISTORY: cp Comparison: 03/02/2016. RESULT: Lines, tubes, and devices: Cholecystectomy clips. Lungs and pleura: Clear. Cardiomediastinal silhouette: Stable. Other: No acute osseous or upper abdominal finding. Stable mild and moderate compression deformity i n the midthoracic spine. IMPRESSION: No acute cardiopulmonary process. Reviewed, dictated and finalized at location K.
--- NOTE | 2023-09-04 18:40 | ECG_ITS ---
Measurements Intervals [place] Rate: 120 P: 74 VT: 145 QRS: 64 QRSD: 92 T: 58 QT: 330 QTc: 466 Interpretive Statements SINUS TACHYCARDIA BORDERLINE ST-T WAVE ABNORMALITY- INF/HIGH LAT LEADS BASELINE ARTIFACT- I, II, III, AVR, AVL ABNORMAL ECG NO PREVIOUS ECG AVAILABLE FOR COMPARISON Electronically Signed On 09-04-2023 19:32:29 CDT by Jamin Butler D.O.
[2023-09-04 18:50] VITALS: BP 181/108; PULSE 126; RESP 20; TEMP 36.5; O2SAT 99
[2023-09-04 19:08] LABS: Basophils Percent Auto 0.7 % (0.2-1.2); Eosinophils Percent Auto 0.7 % (0-4.4); Hemoglobin 13.4 g/dL (12.0-15.0); Immature Granulocyte Absolute 0.03 K/mm3 (0.00-0.031); Immature Granulocyte Percent A 0.5 % (0-0.5); Lymphocytes Absolute Auto 2.23 K/mm3 (0.9-3.2); Lymphocytes Percent Auto 39.3 % (18.3-44.2); Mean Corpuscular HGB Conc 32.7 g/dl (32-36); Mean Corpuscular Hemoglobin 31.2 pg (26-34); Mean Corpuscular Volume 95.3 fl (80-100); Mean Platelet Volume 8.6 fl (7.4-10.4); Monocytes Absolute Auto 0.6 K/mm3 (0.1-0.6); Monocytes Percent Auto 9.9 % (2.6-8.5); Neutrophils Absolute Auto 2.8 K/mm3 (1.3-6.7); Neutrophils Percent Auto 48.9 % (45.5-73.1); Platelet Count Result 324 k/mm3 (150-375); Red Cell Distribution Width 11.9 % (11.5-14.5); White Blood Count 5.7 K/mm3 (4.5-10.0)
[2023-09-04 19:19] LABS: INR 0.9; Prothrombin Time 12.4 Seconds (11.1-14.7)
[2023-09-04 19:20] LABS: Alanine Aminotransferase 38 U/L (6-35); Alkaline Phosphatase 84 U/L (38-126); Anion Gap 8 mmol/L (8-16); Aspartate Amino Transferase 43 U/L (14-36); Bilirubin,Total 0.7 mg/dL (0.2-1.3); Blood Urea Nitrogen 14 mg/dL (7-17); Calcium 9.5 mg/dL (8.4-10.2); Carbon Dioxide 28 mmol/L (22-30); Chloride 102 mmol/L (98-107); Estimated CRCL calculation 49 ml/min; Estimated Glomerular Filt Rate > 60; Glucose 99 mg/dL (65-110); Lipase 162 U/L (23-300); Partial Thromboplastin Time 29.1 Seconds (22.3-36.8); Sodium 138 mmol/L (137-145)
[2023-09-04 19:30] LABS: Troponin I 0.017 ng/mL (0.000-0.034)
--- NOTE | 2023-09-04 20:51 | PC.NURSE ---
Patient's to desk stating the patient and he will be leaving. States she can be in pain at home. States he may take her to another hospital.
== END 2023-09-04 21:25 | disposition left against medical advice (07) ==
PROVIDERS: Emergency Provider Emergency Medicine; PCP Internal Medicine
DX: R07.9 Chest pain, unspecified (principal)
CPT/HCPCS: 36415; 71046; 80053; 83690; 84484; 85025; 85610; 85730; 93005; 99199

== ENCOUNTER 2023-10-05 08:05 | Outpatient (CLI) | payer MEDICARE, SELFPAY ==
--- NOTE | ~2023-10-05 | NM_ITS ---
EXAMINATION: NM terrell stress w perfusion DATE: 10/05/2023 10:17 INDICATION: Chest pain TECHNIQUE: Rest images were obtained following intravenous administration of 10.7 mCi Tc99m tetrofosm in (Myoview). The patient was infused intravenously with Lexiscan (Regadenoson). Then, 34.5 mCi Tc99m tetrofosmin (Myoview) was administered intravenously, and stress images were obtained. Data was margie nstructed into short axis and horizontal and vertical long axis SPECT images. Gated SPECT images were also obtained. COMPARISON: None. FINDINGS: There is no definite reversible or fixed perfusion abnormality to suggest ischemia or infar ction. There is normal left ventricular chamber size, wall motion and ejection fraction. Left ventr icular ejection fraction measures >70%. IMPRESSION: 1. Normal myocardial perfusion at rest and during stress. 2. Left ventricular ejection fraction measuring >70%. Reviewed, dictated and finalized at location A.
--- NOTE | 2023-10-05 08:43 | EST_ITS ---
Patient Info Name: Stephanie Guzman Age: 67 years : 1955 Gender: Female Ht: 66 in Wt: 145 lbs BSA: 1.76 m2 HR: 92 bpm BP: 159 / 83 mmHg Heart Rhythm: Sinus Rhythm Exam Date: 10/05/2023 9:04 AM Exam Location: Echo Lab Patient Status: Outpatient Admit Date: 10/05/2023 Staff Ordering Physician: Jamin Butler DO Attending Provider: Jamin Butler DO Exercise Technologist: Radha Rinaldi CT Exercise Physician: Jamin Butler DO Exam Type: CA stress terrell w NM Study Info Indications R07.89 - Other chest pain A regadenoson stress test was performed. Summary 1. 1. Negative lexiscan stress test for ischemic ST changes by ECG criteria. 2. 2. Baseline hypertension. 3. 3. Nuclear scan to follow and will be reported separately. Please correlate with it. 4. 4. Patient informed of the above results. Protocol: Lexiscan Stress ECG Details Stage: REST Duration (min): 0 min : 53 sec HR (bpm): 92 SBP (mmHg): 159 DBP (mmHg): 85 Stage: REST Duration (min): 9 min : 24 sec HR (bpm): 97 SBP (mmHg): 159 DBP (mmHg): 85 Stage: STAGE 1 Duration (min): 0 min : 59 sec HR (bpm): 121 SBP (mmHg): 169 DBP (mmHg): 73 Stage: RECOVERY Duration (min): 1 min : 0 sec HR (bpm): 119 SBP (mmHg): 169 DBP (mmHg): 73 Stage: RECOVERY Duration (min): 2 min : 0 sec HR (bpm): 115 SBP (mmHg): 169 DBP (mmHg): 73 Stage: RECOVERY Duration (min): 2 min : 53 sec HR (bpm): 112 SBP (mmHg): 168 DBP (mmHg): 73 Rest HR: 97 bpm Peak HR: 121 bpm Rest Sys BP: 159 mmHg Peak Sys BP: 169 mmHg Max Pred HR: 154 bpm % Max Pred HR: 79 % Target HR: 131 bpm Max RPP: 20,449 bpm*mmHg Termination Reason: Completed protocol Cardiac Symptoms: Shortness of breath, Chest discomfort Total Time: 1 min : 0 sec Rest Bland BP: 85 mmHg Peak Bland BP: 73 mmHg Total Dose: 0.4 mg Resting ECG Sinus rhythm. Stress ECG No ST changes. Arrhythmias None. Report Signatures
== END 2023-10-05 08:06 | disposition home or self-care (01) ==
PROVIDERS: PCP Internal Medicine; Visit Provider Internal Medicine Cardiovascular Disease
DX: R07.9 Chest pain, unspecified (principal)
CPT/HCPCS: 78452; 93017; A9502; J2785

== ENCOUNTER 2023-11-07 08:36 | Outpatient (CLI) | payer MEDICARE, SELFPAY ==
[2023-11-07 09:24] LABS: Basophils Percent Auto 0.7 % (0.2-1.2); Eosinophils Percent Auto 0.9 % (0-4.4); Hematocrit 38.8 % (37.0-47.0); Hemoglobin 12.5 g/dL (12.0-15.0); Immature Granulocyte Absolute 0.01 K/mm3 (0.00-0.031); Immature Granulocyte Percent A 0.2 % (0-0.5); Lymphocytes Absolute Auto 1.96 K/mm3 (0.9-3.2); Lymphocytes Percent Auto 46.2 % (18.3-44.2); Mean Corpuscular HGB Conc 32.2 g/dl (32-36); Mean Corpuscular Hemoglobin 31.6 pg (26-34); Mean Platelet Volume 8.8 fl (7.4-10.4); Monocytes Absolute Auto 0.6 K/mm3 (0.1-0.6); Monocytes Percent Auto 14.4 % (2.6-8.5); Neutrophils Absolute Auto 1.6 K/mm3 (1.3-6.7); Neutrophils Percent Auto 37.6 % (45.5-73.1); Platelet Count Result 230 k/mm3 (150-375); Red Blood Count 3.96 M/mm3 (4.2-5.4); Red Cell Distribution Width 12.7 % (11.5-14.5); White Blood Count 4.2 K/mm3 (4.5-10.0)
[2023-11-07 09:37] LABS: Cholesterol 226 mg/dL (0-200); HDL Direct 73 mg/dL; Triglycerides 91 mg/dL (<150)
[2023-11-07 09:38] LABS: Rheumatoid Factor < 12.0 IU/ML (<12)
[2023-11-07 09:45] LABS: Alanine Aminotransferase 17 U/L (6-35); Albumin Level 4.6 g/dL (3.5-5.1); Alkaline Phosphatase 50 U/L (38-126); Anion Gap 6 mmol/L (4-12); Aspartate Amino Transferase 26 U/L (14-36); Bilirubin,Total 0.6 mg/dL (0.2-1.3); Calcium 9.2 mg/dL (8.4-10.2); Carbon Dioxide 28 mmol/L (22-30); Chloride 106 mmol/L (98-107); Estimated Glomerular Filt Rate 55; Glucose 91 mg/dL (65-110); Potassium 3.8 mmol/L (3.4-5.0); Sodium 140 mmol/L (137-145)
[2023-11-07 09:48] LABS: LDL Cholesterol Direct 120 mg/dL
[2023-11-07 10:39] LABS: Blood Urea Nitrogen 16 mg/dL (7-17)
[2023-11-07 10:54] LABS: Free T4 Free Thyroxine 1.16 ng/mL (0.78-2.19); Vitamin D 25 Hydroxy 54.8 ng/mL
== END 2023-11-07 08:37 | disposition home or self-care (01) ==
PROVIDERS: PCP Internal Medicine; Referring Provider Internal Medicine Cardiovascular Disease; Visit Provider Internal Medicine
DX: E03.9 Hypothyroidism, unspecified (principal); I10 Essential (primary) hypertension; L40.50 Arthropathic psoriasis, unspecified; N18.9 Chronic kidney disease, unspecified
CPT/HCPCS: 36415; 80053; 80061; 82306; 84439; 84443; 85025; 86430

== ENCOUNTER 2024-09-03 13:03 | Outpatient (CLI) | payer MEDICARE, SELFPAY ==
[2024-09-03 14:19] LABS: Anion Gap 12 mmol/L (4-12); Blood Urea Nitrogen 16 mg/dL (7-17); Calcium 9.3 mg/dL (8.4-10.2); Carbon Dioxide 26 mmol/L (22-30); Chloride 104 mmol/L (98-107); Estimated Glomerular Filt Rate 53; Glucose 121 mg/dL (65-110); Potassium 3.8 mmol/L (3.4-5.0); Sodium 142 mmol/L (137-145)
--- OUTSIDE RECORDS SUMMARY | 2024-09-03 14:28 | XMS_ITS | Clinical Summary ---
Author Organization [facility] Address [address] [facility] [address] [place] [address] Phone Care Team Providers Care Learning Engineer Name Role Phone Luis FJorgito mendez James JOSEPH Primary Care Provider [phone] Allergies No known active allergies Medications No known medications Active Problems No known active problems Social History Tobacco Use Types Packs/Day Years Used Date Smoking Tobacco: Never Assessed Comments Unknown Sex and Gender Information Value Date Recorded Sex Assigned at Not on file Legal Sex Female 10:50 PM CDT Gender Identity Not on file Sexual Orientation Not on file Plan of Treatment Health Maintenance Due Date Last Done Comments DEXA Bone Density 1955 Hepatitis C Virus (HCV) Screening 1955 TdaP Immunization 1955 Cologuard 2006 Immunochemical Fecal Occult Blood 2006 Mammogram 2006 Pneumococcal Immunization (5 0+ years) (1 of 1 - PCV) 2006 Zoster Immunization (1 of 2) 2006 Colonoscopy 10/04/2023 10/03/2013 Colorectal Cancer Screening 10/04/2023 Influenza Immunization (#1) 2024 SARS-COV-2 Immunization ( - season) 2024 Respiratory Syncytial Virus (RSV) Immunization (Adult) (1 - 1-dose 75+ series) 10/08/2031 10/03/2013 Hepatitis B Immunization Aged Out No longer eligible based on patient's age to complete this topic Meningococcal Immunization (ACWY) Aged Out No longer eligible based on patient's age to complete this topic Rotavirus Immunization Aged Out No lo nger eligible based on patient's age to complete this topic Procedures Procedure Name Priority Date/Time Associated Diagnosis Comments HM COLONOSCOPY Routine 10/03/2013 from Last 3 Months or Most Recently Relevant to Health Maintenance Results * COLONOSCOPY (10/03/2013) us Jorgito Orosco DO PROCEDURE/MINOR SURGICAL OR DERABLES Final Result from Last 3 Months or Most Recently Relevant to Health Maintenance Care Teams Learning Engineer Relationship Specialty Start Date End Date Jorgito Orosco DO [address] [facility] [address] [place], [place] [id number] PCP - General Internal Medicine 03/28/18
--- OUTSIDE RECORDS SUMMARY | 2024-09-03 14:28 | XMS_ITS | Clinical Summary ---
Author Organization [facility] Address [address] [place] [address] Care Team Providers Care Sample Processor Name Role Phone Jorgito Orosco Primary Care Provider [phone] Source Comments [facility],non-owned Affiliates and Associated Physician Practices is amultiple site organization consisting of ambulatory clinics and hospital sitesin [place], [place], [place] and [place]. This disclosure is being madepursuant to the Care Everywhere program and may not contain all information available regarding this patient. Last updated 18.[facility] [employer] Social History Tobacco Use Types Packs/Day Years Used Date Smoking Tobacco: Never Assessed Sex and Gender Information Value Date Recorded Sex Assigned at Not on file Gender Identity Not on file Sexual Orientation Not on file Plan of Treatment Health Maintenance Due Date Last Done Comments BONE DENSITY TESTING 1955 COLOGUARD (AGES 45-75) - COL ON CA SCREENING 1955 COLON MONITORING 1955 COLONOSCOPY - COLON CA SCREENING 1955 CT COLONOGRAPHY - COLON CA SCREENING 1955 Colorectal Cancer Screening 1955 FIT - COLON CA SCREENING 1955 FLEX SIG - COLON CA SCREENING 1955 MAMMOGRAM 1955 HEPATITIS C SCREENING 10/03/1974 DTAP/TDAP/TD VACCINES (1 - Tdap) 10/08/1975 PNEUMOCOCCAL VACCINE 50+ (1 of 1 - PCV) 2006 ZOSTER VACCINE (1 of 2) 2006 LIPID TESTING 11/23/2016 11/24/2011 COVID-19 VACCINE (2023-2 5 season) 2024 INFLUENZA VACCINE (#1) 2024 DEPRESSION SCREENING 06/19/2024 MEDICARE AWV CALENDAR YEAR 2024 Respiratory Syncytial Virus (RSV) Vaccine Pt: or over 60 yrs (1 - 1-dose 75+ series) 10/08/2031 HEPATITIS B VACCINE Aged Out No longe r eligible based on patient's age to complete this topic HIB VACCINE Aged Out No longer eligi ble based on patient's age to complete this topic HPV VACCINE Aged Out No longer eligi ble based on patient's age to complete this topic MENINGOCOCCAL (Group B) VACC INE SHARED DECISION-MAKING Aged Out No longer eligibl e based on patient's age to complete this topic MENINGOCOCCAL GROUPS A/C/Y/W VACCINE Aged Out No longer eligible b ased on patient's age to complete this topic Care Teams Sample Processor Relationship Specialty Start Date End Date Jorgito Orosco DO [address] [facility] [address] [place] [address] PCP - General Internal Medicine 03/17/15
--- OUTSIDE RECORDS SUMMARY | 2024-09-03 14:28 | XMS_ITS | Clinical Summary ---
Author Organization [facility] Address [address] [place] [address] Care Team Providers Care Public Works Technician Name Role Phone Jorgito Orosco DO Primary Care Provider [phone] Allergies Active Allergy Reactions Criticality Noted Date Comments Adhesive Tape-Silicones Unknown 05/19/2020 Codeine Unknown 05/19/2020 Divalproex Unknown 05/19/2020 Hydrocodone Unknown 05/19/2020 Iodinated Contrast Media Unknown 05/19/2020 Nitrofurantoin Unknown 05/19/2020 Penicillins Unknown 05/19/2020 Propoxyphene Unknown 05/19/2020 Sulfa (Sulfonamide Antibiotics) Unknown 06/2019 Tizanidine Unknown High 05/19/2020 Reaction: jittery, Medications levothyroxine 25 mcg tablet TAKE 1 TABLET BY MOUTH EVERY DAY 0 Active buPROPion HCL (WELLBUTRIN XL) 150 mg Extended Release 24 hour tablet TAKE 1 TABLET BY MOUTH EVERY DAY 0 Active pantoprazole (PROTONIX) 40 mg Tablet, Delayed Release (E.C.) TAKE 1 TABLET BY MOUTH EVERY MORNING 0 Active meclizine (ANTIVERT) 25 mg tablet TAKE 1 TABLET BY MOUTH THREE TIMES A DAY NEEDED FOR DIZZINESS 0 Active traMADoL (ULTRAM) 50 mg tablet TAKE 1 TABLET BY MOUTH EVERY 12 HOURS NEEDED FOR PAIN 0 Active ALPRAZolam (XANAX) 1 mg tablet TAKE 1 TABLET BY MOUTH 4 TIMES A DAY 0 Active baclofen (LIORESAL) 20 mg tablet Take by mouth 3 times daily as needed for Pain. Active rosuvastatin (CRESTOR) 10 mg tablet 1 Active meloxicam (MOBIC) 15 mg tabletIndicatio ns:Undifferenti ated connective tissue disease Take 1 Tablet (15 mg) by mouth 1 time daily as needed for Pain. 30 Tablet 3 1 Active hydrOXYchloroQU INE (PLAQUENIL) 200 mg tabletIndicatio ns:Undifferenti ated connective tissue disease Take 1 Tablet (200 mg) by mouth daily. 30 Tablet 3 1 Active mycophenolate mofetil (CELLCEPT) 500 mg tabletIndicatio ns:Undifferenti ated connective tissue disease Take 1 Tablet (500 mg) by mouth daily. 30 Tablet 3 1 Active Active Problems Problem Noted Date Diagnosed Date Undifferentiated connective tissue disease 07/16 Family History Medical History Relation Name Comments Depression Father Clarence Heart Disease Father Clarence High Cholesterol Father Clarence Lung Cancer Maternal Grandfather Aiden Diabetes Maternal Grandmother Kellen Stroke Maternal Grandmother Kellen Depression Paternal Grandfather Rambo Arthritis-osteo Paternal Grandmother Anaarik Stomach Cancer Paternal Grandmother Anaarik SLE Sister Juany Relation Name Status Comments Father Clarence Maternal Grandfather Aiden Maternal Grandmother Kellen Paternal Grandfather Rambo Paternal Grandmother Anah Sister Juany Social History Tobacco Use Types Packs/Day Years Used Date Smoking Tobacco: Never Smokeless Tobacco: Never Alcohol Use Standard Drinks/Week Comments Not Currently 0 (1 standard drink = 0.6 oz pur e alcohol) Comments Unknown Sex and Gender Information Value Date Recorded Sex Assigned at Not on file Legal Sex Female 10:57 PM CDT Gender Identity Not on file Sexual Orientation Not on file Last Filed Vital Signs Vital Sign Reading Time Taken Comments Blood Pressure 134/80 10/22/2020 11:50 AM CDT Pulse 99 07/16/2020 3:40 PM TOUR LEADER Temperature - - Respiratory Rate - - Oxygen Saturation 98% 07/16/2020 3:40 PM TOUR LEADER Inhaled Oxygen Concentration - - Weight 64.9 kg (143 lb) 10/22/2020 11:50 AM CDT Height 165.1 cm (5' 5 ) 10/22/2020 11:50 AM CDT Body Mass Index 23.8 10/22/2020 11:50 AM CDT Plan of Treatment Health Maintenance Due Date Last Done Comments DTAP/TDAP/TD VACCINES (1 - Tdap) 10/08/1975 PNEUMOCOCCAL VACCINE 50+ YEARS (1 of 2 - PCV) 10/07/18 76 ZOSTER VACCINE (1 of 2) 10/08/1975 BREAST CANCER SCREENING 1996 COLORECTAL SCREENING 2001 Colorectal Cancer Screening 2001 FIT-DNA Q 3 years 2001 FIT/FOBT Q 1 year 2001 Flex Sig/CT Colonography Q 5 years 2001 RSV VACCINE (60+ or ) (1 - Risk 60-74 years 1-dose series) 2016 OSTEOPOROSIS SCREENING 2021 INFLUENZA VACCINE (#1) 2024 Insurance [facility] [id number] [facility] Care Teams Public Works Technician Relationship Specialty Start Date End Date Jorgito Orosco DO [address] [facility] [address] [place] [address] PCP - General Internal Medicine 05/19/20
--- OUTSIDE RECORDS SUMMARY | 2024-09-03 14:29 | XMS_ITS | Clinical Summary ---
Author Organization [facility] [address] Address [address] [place] [address] Phone Care Team Providers Care Oven Heater Name Role Phone Jorgito Orosco MD Primary Care Provider [phone] Daniel Palomares MD Unavailable [phone] Allergies Active Allergy Reactions Criticality Noted Date Comments Adhesive Tape-Silicones Unknown Codeine Unknown Divalproex Unknown Iodinated Contrast Media Unknown Nitrofurantoin Unknown Penicillins Unknown Propoxyphene Sulfa (Sulfonamide Antibiotics) Tizanidine Unknown High Reaction: jittery, Medications carvedilol (COREG) 6.25 mg tablet take 1 tablet by oral route 2 times every day with food 0 0 03/17/2015 Active ALPRAZolam (XANAX) 1 mg tablet take 1 tablet by oral route 3 times every day 0 0 03/17/2015 Active levothyroxine sodium (TIROSINT) 88 mcg capsule take 1 capsule by oral route every day 0 0 03/17/2015 Active pravastatin (PRAVACHOL) 40 mg tablet take 1 tablet by oral route every day 0 0 03/17/[address] (PROTONIX) 40 mg EC tablet take 1 tablet by oral route every day 0 0 09/24/2015 Active cholecalciferol (VITAMIN D3) 5,000 unit tablet once a day 0 0 09/24/2015 Active meclizine (ANTIVERT) 25 mg tablet take 1 tablet by oral route every day as needed 0 0 11/23/2015 Active ondansetron (ZOFRAN, HYDROCHLORIDE,) 4 mg tablet 1 tab po tid prn nausea 30 2 09/28/2016 Active valACYclovir (VALTREX) 1 gram tablet 01/03/2017 Active gabapentin (NEURONTIN) 300 mg capsule Take 1 capsule (300 mg total) by mouth nightly. 30 capsule 2 03/23/2017 Active traMADol (ULTRAM) 50 mg tablet TAKE 1 TABLET BY MOUTH THREE TIMES DAILY NEEDED 90 tablet 05/29/2017 Active cyclobenzaprine (FLEXERIL) 5 mg tablet TAKE 1 TABLET BY MOUTH THREE TIMES DAILY NEEDED 90 tablet 08/16/2017 Active Active Problems Problem Noted Date Diagnosed Date Fibromyalgia 12/08/2016 Overview (03/23/2017): This is based on generalized pain fatigue and poor sleep as well as poor cognition. I suspect this is causing the majority of her symptoms. She has tried and failed several medications including gabapentin Lyrica Cymbalta amitriptyline and Savella, soma, tramadol Soma ineffective Tramadol initially helped then ineffective and pruritis Gabapentin restarted (03/23/17); on flexeril 5 mg tid prn Ultrasound of the right hand on 2 separate occasions most recently on November 17, 2016 do not reveal any significant inflammatory changes. Vectra DA was 23 when checked (10/2016) revealing low disease activity. AVISE CTD -1.2 with neg SABI, neg RF and no autoantibodies (02/07/17) RF previously 15 and diag with RA per previous rheum, s/p treatment with mtx and hcq with no benefit. leflunomide made her feel ill. Has no current evidence of RA. Assessment & Plan (03/23/2017 11:56 AM CDT): Still with generalized pain, fatigue, poor sleep. Has generalized tenderness on exam. Has no clinical, serologic, or radiographic evidence of an inflammatory arthritis or other connective tissue disease. Recent AVISE labs negative for connective tissue disease. Ultrasound of hand was negative for any inflammatory changes. Has tried and failed several meds for FM . Will go ahead and do a retrial of gabapentin since it has been so long since she has tried it. Will start gabapentin 300 mg qHS. Cont flexeril 5 mg tid prn. Pt encouraged to exercise which can benefit fibromyalgia. Cont tylenol, ibuprofen prn. F/u 3 months. Assessment & Plan (02/07/2017 12:16 PM CDT): This is based on generalized pain fatigue and poor sleep as well as poor cognition. I suspect this is causing the majority of her symptoms. She currently is on Soma 350 mg b.i.d. And tramadol 50 mg b.i.d both of which she does not feel helps and she believes she has developed an allergy to tramadol due to pruritis when she takes it. She has tried and failed several medications including gabapentin Lyrica Cymbalta amitriptyline and Savella. Will DC soma and tramadol. Will start flexeril 5 mg tid prn which she had been on before and felt it helped more. Pt encouraged to exercise. Assessment & Plan (12/08/2016 12:35 PM CDT): This is based on generalized pain fatigue and poor sleep as well as poor cognition. I suspect this is causing the majority of her symptoms. She currently is on Soma 350 mg b.i.d. And tramadol 50 mg b.i.d. As needed with uncertain benefit. She has tried and failed several medications including gabapentin Lyrica Cymbalta amitriptyline and Savella. She does have generalized pain complaints and tenderness on exam. She really is not participating in any routine exercise. Can continue Soma 350 mg and tramadol 50 mg both b.i.d. As needed. She was strongly encouraged to participate in routine exercise which can benefit her chronic pain. Panic disorder 03/17/2015 Overview (09/23/2016): Panic disorder Hypertension 03/17/2015 Overview (09/23/2016): HTN - Hypertension Resolved Problems Problem Noted Date Diagnosed Date Resolved Date Rheumatoid arthritis involvi ng multiple sites with positive rheumatoid factor 12/08/2016 03/23/20 17 Overview (02/07/2017): This was diagnosed by her previous camp director. Her rheumatoid factor had been elevated in the past at 15 although clinically she does not have any synovitis on exam. Ultrasound of the right hand on 2 separate occasions most recently on November 17, 2016 do not reveal any significant inflammatory changes. A Vectra DA was 23 when checked (10/2016) revealing low disease activity. At this point I am not convinced she has rheumatoid arthritis although this does remain possible. If she does have rheumatoid arthritis I suspect this is very mild. In the past she has stated that she felt better with methotrexate and hydroxychloroquine although over time these no longer were working as well. Methotrexate had to be discontinued as she felt ill on both oral and subcutaneous methotrexate. She stopped hydroxychloroquine due to concerns of retinal toxicity. Leflunomide stopped due to feeling ill on it and developing oral lesions. Assessment & Plan (02/07/2017 12:21 PM CDT): CDAI 33 although no synovitis This was diagnosed by her previous camp director based on joint complaints and a mildly elevated RF at 15, which has since become negative. Still with generalized joint complaints although has pain everywhere from FMS so is difficult to appreciate. Is noted recent Vectra DA revealed low disease activity and ultrasound of her right hand back in November did not reveal any significant inflammatory changes so my suspicion for RA is low at this time. Pt had to stop leflunomide >2 weeks ago due to it making her feel il and causing oral lesions. Has no active synovitis on exam today. Has diffuse tenderness on exam. Will defer any specific trreatment for RA at this time as I am not convinced this is the correct diagnosis. Due to a constellation of complaints will check AVISE CTD to better evaluate for SLE and other connective tissue diseases. If this is unremarkable I would not add any specific dmard treatment. F/u 6 weeks. Assessment & Plan (12/08/2016 12:32 PM CDT): This was diagnosed by her previous camp director. Her rheumatoid factor had been elevated in the past at 15 although clinically she does not have any synovitis on exam. Ultrasound of the right hand on 2 separate occasions most recently on November 17, 2016 do not reveal any significant inflammatory changes. A Tony DA was 23 when checked last month revealing low disease activity. At this point I am not convinced she has rheumatoid arthritis although this does remain possible. If she does have rheumatoid arthritis I suspect this is very mild. In the past she has stated that she felt better with methotrexate and hydroxychloroquine although over time these no longer were working as well. Methotrexate had to be discontinued as she felt ill on both oral and subcutaneous methotrexate. She stopped hydroxychloroquine due to concerns of retinal toxicity. She currently is on the leflunomide which was started at her last visit although she does not feel is helping all that much. She has no active synovitis on exam and in no significant tenderness palpation over the MCP joints although she has some mild tenderness of the PIP joints. She does have generalized pain complaints which is difficult to appreciate with underlying fibromyalgia. Will increase her leflunomide to 20 mg daily. Obtain labs as below. Follow-up in 6 weeks. Family History Medical History Relation Name Comments Pancreatic cancer Mother Cancer, pa ncreas; Relation Name Status Comments Mother Social History Tobacco Use Types Packs/Day Years Used Date Smoking Tobacco: Never Comments Unknown Sex and Gender Information Value Date Recorded Sex Assigned at Not on file Legal Sex Female 3:59 AM BRICKLAYER APPRENTICE Gender Identity Female 08/27/2020 12:54 PM BRICKLAYER APPRENTICE Sexual Orientation Straight 08/27/2020 12 :54 PM BRICKLAYER APPRENTICE Obstetrics History Last Filed Vital Signs Vital Sign Reading Time Taken Comments Blood Pressure 130/88 03/23/2017 11:15 AM CDT Pulse 70 02/07/2017 11:32 AM CDT Temperature - - Respiratory Rate - - Oxygen Saturation - - Inhaled Oxygen Concentration - - Weight 79.4 kg (175 lb) 03/23/2017 11:15 AM CDT Height 165.1 cm (5' 5 ) 12/08/2016 12:07 PM CDT Body Mass Index 29.12 12/08/2016 12:07 PM CDT Plan of Treatment Not on file Insurance [facility] [place] [employer] Care Teams Oven Heater Relationship Specialty Start Date End Date Jorgito Orosco MD [address] [facility] [address] [place], [place] [id number] PCP - General 09/16/16 Daniel Palomares MD [address] [facility] [address] [place] [address] Rheumatology 06/27/17
--- OUTSIDE RECORDS SUMMARY | 2024-09-03 14:29 | XMS_ITS | Patient Health Record ---
Author Organization [employer] Address [address] [place], [place] [id number] Care Team Providers Care Restaurant Bartender Name Role Phone NARGIS JOSEPHCAROLEE Primary Care Provider Michaela Mays Unavailable [phone] ALLERGIES Allergen (clinical drug ingredient) Drug/Non Drug Allergy documented on EMR Reaction Allergy Type Onset Date Status Darvocet N 50 Unknown Drug Allergy Act buster Percodan Unknown Drug Allergy Active nitrofurantoin Macrodantin Unknown Drug Allergy Active valproate Depakote Unknown Drug Allergy Active elavil Unknown Drug Allergy Active sulfa Unknown Drug Allergy Active penicillin Unknown Drug Allergy Active codeine codeine Unknown Drug Allergy Active REASON FOR REFERRAL No Information MEDICATIONS Medication SIG (Take, Route, Frequency, Duration) Notes Start Date End Date Status NexIUM 20 mg 1 cap(s) orally once a day 06/19/2024 06/19/2024 Active ALPRAZolam 1 mg 1 tab(s) orally 4 ti mes a day 06/19/2024 06/19/2024 Active Seroquel 100mg 1 tab(s) orally hs 06/19/202406/19 Active Synthroid 50 mcg (0.05 mg) 1 tab(s) oral ly once a day 06/19/2024 06/19/2024 Active metoprolol 50 mg 1 tab(s) orally once a day 06/19/2024 06/19/2024 Active meclizine 25 mg 1 tab(s) orally 3 ti mes a day 06/19/2024 06/19/2024 Active venlafaxine 150 mg 1 cap(s) orally once a day 06/19/2024 06/19/2024 Active Nasacort AQ 55 mcg/inh 2 spray(s) intran asally once a day 06/19/2024 06/19/2024 Active celebrex 200 mg 1 cap(s) orally 2 ti mes a day 06/15/2012 Active Z- ANGE 250 MG DIRECTED ORALLY D AILY for 5DAY 03/09/2012 Active savella 100mg 1 tab ORALLY BID for 30 DAY 04/22/2011 Active hydrocodone/apap 5/500 mg 1 tablet ORALL Y BID PRN for 30 DAY 11/24/2011 Active ergocalciferol 50,000 intl units 1 cap(s) orally once a week for 90 day 08/24/2011 Active carisoprodol 350 mg 1 tab(s) orally tid 06/19/2024 06/19/2024 Active SOCIAL HISTORY Tobacco Use: Social History Observation Description Date Details (start date - stop date) Never Smoker NA - NA Sex Assigned At : Social History Observation Description Sex Assigned At Unknown Tobacco Use: Question Answer Notes Smoking Status nonsmoker PROBLEMS Problem Type ICD Code Onset Dates Problem Status W/U Status Risk SNOMED Code Notes Problem Fibromyalgia (729.1) Active confirmed Fibromyalgia (619442343) Problem Osteoarthrosis (715.09) Active confirmed Osteoarthrosis (683607282) Problem Autoimmune thyroiditis NOS (245.2) Active confirmed Autoimmune thyroiditis (33028372) Problem MONITOR MED (V58.69) Active confirmed Long-term drug therapy (803874193) Problem HTN [Hypertension] (401.9) Active confirmed Low Essential hypertension (88772249) Problem Cholesterolemia (272.0) Active confirmed Low Pure hypercholesterolemia (595789665) Problem HYPOTHYROID (244.9) Active confirmed Low Hypothyroid (88863184) PLAN OF TREATMENT Pending Test Test Name Order Date Anticardiolip Ab, IgA/G/M, Qn 08/11/2010 SABI Panel (SABI+JOSE ANGEL+Scl 70+SjoSSA+SjoSSB) 08/11/2010 T-4, FREE Lab vanessa only 03/08/2012 LIPID PANEL 03/08/2012 Insurance Providers Payer Name Payer Address Payer Phone Subscriber Number Group Number Insured Name Patient Relationship to Insured Coverage Start Date Coverage End Date GOLD ADVANTAGE - Referral [facility] [place] [address] [place] [address] [id number] Stephanie Chapa Self - patient is the insured 2 MEDICAL (GENERAL) HISTORY Medical History History ICD Code Tension headaches sinus problems thyroid disease rapid heartbeat swelling of ankles/feet bloating constipation gas hemorrhoids indigestion Hot Flashes anxiety depression Panic attacks hepatitis herpes Surgical History Surgery Date(Month/Year) hysterectomy gallbladder surgery Back surgery
--- OUTSIDE RECORDS SUMMARY | 2024-09-03 14:29 | XMS_ITS | Clinical Summary ---
Author Organization [facility] Address [facility] [place] [address] Care Team Providers Care Shopfitter Name Role Phone Unavailable Primary Care Provider Unavailabl e Social History Tobacco Use Types Packs/Day Years Used Date Smoking Tobacco: Never Assessed Comments Unknown Sex and Gender Information Value Date Recorded Sex Assigned at Not on file Legal Sex Female 7:26 PM CDT Gender Identity Not on file Sexual Orientation Not on file Plan of Treatment Health Maintenance Due Date Last Done Comments Colorectal Cancer Screening Colonoscopy (10 Years) 1956 Hepatitis C 1974 DTaP, Tdap and Td Vaccines ( 1 - Tdap) 10/08/1975 Mammogram Screening 1996 Zoster Vaccines (1 of 2) 2006 Dexa Scan (General) 2021 Pneumococcal Vaccine: 65+ Ye ars (1 of 1 - PCV) 2021 COVID-19 Vaccine (2023-2 5 season) 2024 Influenza Adult (#1) 2024 RSV Immunization or 60+ Years (1 - 1-dose 75+ series) 10/08/2031 Meningococcal B Vaccine Aged Out No l onger eligible based on patient's age to complete this topic Meningococcal Vaccine Aged Out No ewa luis eligible based on patient's age to complete this topic RSV Immunizations Under 20 Months Aged Out No longer eligible based on patient's age to complete this topic
--- OUTSIDE RECORDS SUMMARY | 2024-09-03 14:29 | XMS_ITS | Referral Summary ---
Author Organization 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 Her rheumatoid factor had been elevated in [...] synovitis This was diagnosed by her previous gate supervisor based on joint complaints and a mildly [...] CDT): This was diagnosed by her previous gate supervisor. Her rheumatoid factor had been elevated in the past at 16 although clinically she does not have any synovitis on exam. Ultrasound of the right hand on 2 separate occasions most recently on November 17, 2016 do not reveal any significant inflammatory changes. A Vectra DA was 23 when checked last month [...] labs as below. Follow-up in 6 weeks. 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 Care Teams Molecular Biology Professor Relationship Specialty Start Date End Date Jorgito Orosco MD [address] [place], [place] [id number] PCP - General 09/16/16 Daniel Palomares MD [address] [place] [address] Rheumatology 06/27/17
== END 2024-09-03 13:04 | disposition home or self-care (01) ==
PROVIDERS: PCP Internal Medicine
DX: N28.9 Disorder of kidney and ureter, unspecified (principal)
CPT/HCPCS: 36415; 80048

== ENCOUNTER 2024-09-24 09:34 | Outpatient (CLI) | payer MEDICARE, SELFPAY ==
--- OUTSIDE RECORDS SUMMARY | 2024-09-24 10:30 | XMS_ITS | Clinical Summary ---
Author Organization [facility] Address [facility] [place] [address] Care Team Providers Care Treater Name Role Phone Unavailable Primary Care Provider [...] of 1 - PCV) 2021 COVID-19 Vaccine ( - 2023-2 5 season) 2024 RSV Immunization or 60+ Years (1 [...]
--- OUTSIDE RECORDS SUMMARY | 2024-09-24 10:30 | XMS_ITS | Clinical Summary ---
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 Her rheumatoid factor had been elevated in [...] on file Legal Sex Female 3:59 AM DECK LID FITTER Gender Identity Female 08/27/2020 12:54 PM DECK LID FITTER Sexual Orientation Straight 08/27/2020 12 :54 PM DECK LID FITTER Obstetrics History Last Filed Vital Signs Vital [...] Plan of Treatment Not on file Insurance [facility] [place] COVENTRY [employer] Care Teams Door Fitter Relationship Specialty Start Date End Date Jorgito Orosco MD [address] [facility] [address] [place], [place] [id number] PCP - General 09/16/16 Daniel Palomares MD [address] [facility] [address] [place] [address] Rheumatology 06/27/17
--- OUTSIDE RECORDS SUMMARY | 2024-09-24 10:30 | XMS_ITS | Clinical Summary ---
Author Organization [facility] Address [address] [place] [address] Care Team Providers Care Sports Official Name Role Phone Jorgito Orosco Primary Care Provider [phone] Source Comments [facility],non-owned Affiliates and Associated Physician Practices is amultiple site organization consisting of ambulatory clinics and hospital sitesin [place], [place], [place] and [place]. This disclosure is being madepursuant to the Care Everywhere program and may not contain all information available regarding this patient. Last updated 18.[facility] [place] Social History Tobacco Use Types Packs/Day Years [...] 11/24/2011 COVID-19 VACCINE (2023-2 5 season) 2024 DEPRESSION SCREENING 06/19/2024 MEDICARE AWV CALENDAR YEAR 2024 INFLUENZA VACCINE (Season Ended) 2025 Respiratory Syncytial Virus (RSV) Vaccine Pt: or [...] age to complete this topic Care Teams Sports Official Relationship Specialty Start Date End Date Jorgito Orosco DO [address] [facility] [address] [place] [address] PCP - General Internal Medicine 03/17/15
--- OUTSIDE RECORDS SUMMARY | 2024-09-24 10:30 | XMS_ITS | Clinical Summary ---
Author Organization [employer] [place] Address [address] [place] [address] Care Team Providers Care Industrial X Ray Operator Name Role Phone Jorgito Orosco DO Primary Care Provider [phone] Allergies Active Allergy Reactions Criticality Noted Date [...] Diabetes Maternal Grandmother Kellen Stroke Maternal Grandmother Keleln Depression Paternal Grandfather Rambo Arthritis-osteo Paternal Grandmother [...] AM CDT Pulse 99 07/16/2020 3:40 PM FLYER BUILDER Temperature - - Respiratory Rate - - Oxygen Saturation 98% 07/16/2020 3:40 PM FLYER BUILDER Inhaled Oxygen Concentration - - Weight 64.9 [...] SCREENING 2021 INFLUENZA VACCINE (#1) 2024 Insurance [employer] O MCR Care Teams Industrial X Ray Operator Relationship Specialty Start Date End Date Jorgito Orosco DO [address] [facility] [address] [place] [id number] PCP - General Internal Medicine 05/19/20
--- OUTSIDE RECORDS SUMMARY | 2024-09-24 10:30 | XMS_ITS | Patient Health Record ---
Author Organization [employer] Address [address] [place], [place] [address] Care Team Providers Care Multimedia Technician Name Role Phone NARGIS JOSEPHCAROLEE Primary Care Provider Michaela Mays Unavailable [phone] ALLERGIES Allergen (clinical drug ingredient) Drug/Non Drug [...] Notes Problem Fibromyalgia (729.1) Active confirmed Fibromyalgia (903610797) Problem Osteoarthrosis (715.09) Active confirmed Osteoarthrosis (692113868) Problem Autoimmune thyroiditis NOS (245.2) Active confirmed Autoimmune thyroiditis (75340291) Problem MONITOR MED (V58.69) Active confirmed Long-term drug therapy (913889244) Problem HTN [Hypertension] (401.9) Active confirmed Low Essential hypertension (48097044) Problem Cholesterolemia (272.0) Active confirmed Low Pure hypercholesterolemia (405122594) Problem HYPOTHYROID (244.9) Active confirmed Low Hypothyroid (42650984) PLAN OF TREATMENT Pending Test Test Name Order Date Anticardiolip Ab, IgA/G/M, Qn 08/11/2010 SABI Panel (SABI+JOSE ANGEL+Scl 70+SjoSSA+SjoSSB) 08/11/2010 T-4, FREE Lab vanessa only 03/08/2012 LIPID PANEL 03/08/2012 Insurance Providers Payer Name Payer Address Payer Phone Subscriber Number Group Number Insured Name Patient Relationship to Insured Coverage Start Date Coverage End Date GOLD ADVANTAGE - Referral [facility] [address] [place] [address] [id number] Stephanie Chapa Self - patient is the insured 2 MEDICAL (GENERAL) HISTORY Medical History History ICD Code Tension headaches sinus problems thyroid disease rapid heartbeat swelling of ankles/feet bloating constipation gas hemorrhoids indigestion Hot Flashes anxiety depression Panic attacks hepatitis herpes Surgical History Surgery Date(Month/Year) hysterectomy gallbladder surgery Back surgery
--- OUTSIDE RECORDS SUMMARY | 2024-09-24 10:30 | XMS_ITS | Clinical Summary ---
Author Organization [facility] Address [address] [address] [place] [address] Phone Care Team Providers Care Federal Agent Name Role Phone Luis FJorgito mendez James JOSEPH Primary Care Provider [phone] Allergies No known active allergies Medications No [...] Recently Relevant to Health Maintenance Care Teams Federal Agent Relationship Specialty Start Date End Date Jorgito Orosco DO [address] [facility] [address] [place], [place] [id number] PCP - General Internal Medicine 03/28/18
--- OUTSIDE RECORDS SUMMARY | 2024-09-24 10:30 | XMS_ITS | Referral Summary ---
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 Her rheumatoid factor had been elevated in [...] synovitis This was diagnosed by her previous crepe sole wire brusher based on joint complaints and a mildly [...] CDT): This was diagnosed by her previous crepe sole wire brusher. Her rheumatoid factor had been elevated in [...] on file Legal Sex Female 3:59 AM INSPECTOR AND CLIPPER Gender Identity Female 08/27/2020 12:54 PM INSPECTOR AND CLIPPER Sexual Orientation Straight 08/27/2020 12 :54 PM INSPECTOR AND CLIPPER Last Filed Vital Signs Vital Sign Reading [...] Plan of Treatment Not on file Insurance [facility] [place] [facility] Care Teams Performance Improvement Coordinator Relationship Specialty Start Date End Date Jorgito Orosco MD [address] [place], [place] [id number] PCP - General 09/16/16 Daniel Palomares MD [address] [place] [address] Rheumatology 06/27/17
[2024-09-24 10:32] LABS: Anion Gap 7 mmol/L (4-12); Blood Urea Nitrogen 14 mg/dL (7-17); Calcium 9.1 mg/dL (8.4-10.2); Carbon Dioxide 27 mmol/L (22-30); Chloride 106 mmol/L (98-107); Estimated Glomerular Filt Rate > 60; Glucose 85 mg/dL (65-110); Potassium 3.8 mmol/L (3.4-5.0); Sodium 140 mmol/L (137-145)
== END 2024-09-24 09:35 | disposition home or self-care (01) ==
PROVIDERS: PCP Internal Medicine; Visit Provider Nurse Practitioner Family
DX: N28.9 Disorder of kidney and ureter, unspecified (principal)
CPT/HCPCS: 36415; 80048